=== PATIENT | female | born 1995 | race Caucasian/White ===

== ENCOUNTER 2020-08-14 12:16 | Emergency (ER) | payer SELFPAY ==
[~2020-08-14] VITALS: Ht 177.8 cm; Wt 113.4 kg
--- NOTE | 2020-08-14 12:47 | ED General ---
General Chief Complaint: General Problems/Pain Stated Complaint: BILAT HAND AND FEET SWELLING/PAIN Nursing Triage Note: PT ARRIVED BY PRIVATE VEHICLE WITH CHIEF COMPLAINT OF BILATERAL LOWER AND UPPER EXTREMITIES (HANDS AND FEET). PT WAS ALERT, ORIENTED X 4 AND AMBULATORY. PT STATED THAT SHE STARTED TO HAVE BILATERAL FEET AND HAND SWELLING. HER LEFT FOOT IS NORMALLY SMALLER WITH FOOT DROP, BUT BOTH FEET LOOK LARGE. ALSO, PT SHOWED HER BELLY BUTTON WITH REDNESS AND FLAKING WAS MIGHT APPEAR TO BE A FUNGAL INFECTION. PT IS ALLERGIC TO TRAMADOL WHICH CAUSES SEIZURES. PT HAS HISTORY OF FOOT DROP, HEPATITIS C AND HYPERTENSION. PT SMOKES A PACK OF CIGS A DAY, OCCASIONAL DRINKING, AND SMOKES MARIJUANA. PT'S VITAL SIGNS WERE DONE ON ARRIVAL. REPORT WAS GIVEN TO PROVIDER. Nursing Sepsis Screen: No Definite Risk Source of Information: Patient Exam Limitations: No Limitations History of Present Illness Date Seen by Provider: Aug 14, 2020 Time Seen by Provider: 12:21 Initial Comments This is a well-appearing 25-year-old female who presents to the ER via POV with complaint of bilateral lower extremity and bilateral upper extremity swelling. States that she has been having swelling for the past week as well as tingling in her hands. Also reports some redness around her bellybutton that started yesterday. States that she she drinks a pint of vodka daily. Smokes THC daily and last used methamphetamine 2 days ago. States that she was just released from jail last month and has not had time to establish with a primary care provider. Denies fever, chills, cough, shortness of breath, dysuria, hematuria. Allergies and Home Medications Allergies Coded Allergies: tramadol (Verified Allergy, Unknown, Vomiting, 08/14/20) Has Seizures Home Medications Nystatin 15 Gm Oint...g., 15 GM TP QID Prescribed by: KIRK BERNABE on 08/14/20 1406 Patient Home Medication List Home Medication List Reviewed: Yes Review of Systems Review of Systems Constitutional: see HPI EENTM: no symptoms reported Respiratory: no symptoms reported Cardiovascular: no symptoms reported Gastrointestinal: see HPI Genitourinary: see HPI Musculoskeletal: no symptoms reported Skin: no symptoms reported Psychiatric/Neurological: Emotional Problems, Paresthesia Hematologic/Lymphatic: No Symptoms Reported Immunological/Allergic: see HPI Past [id number]-Dejofd Hx Patient Social History Alcohol Use: Occasionally Uses Smoking Status: Current Everyday Smoker Type Used: Cigarettes 2nd Hand Smoke Exposure: Yes Recent Infectious Disease Expo: No Recent Hopitalizations: No Seasonal Allergies Seasonal Allergies: No Past Medical History Surgeries: Yes (spleenectomy, knee/ribs/pelvic surgery) Respiratory: No Cardiac: Yes Hypertension Neurological: No Sexually Transmitted Disease: No (Hepatitis C) HIV/AIDS: No (Hepatitis C) Genitourinary: No Gastrointestinal: No Musculoskeletal: Yes Foot Drop Endocrine: No HEENT: No Cancer: No Psychosocial: No Blood Disorders: Yes (Hepatitis C) Physical Exam Vital Signs Vital Signs - First Documented 08/14/20 12:23 Temp 36.4 Pulse 67 Resp 18 B/P (MAP) 134/80 (98) Pulse Ox 100 O2 Delivery Room Air Capillary Refill : Less Than 3 Seconds Height, Weight, BMI Height: '" Weight: lbs. oz. kg; 35.00 BMI Method: General Appearance: No Apparent Distress, WD/WN Eyes: Bilateral Eye Normal Inspection, Bilateral Eye PERRL, Bilateral Eye EOMI HEENT: PERRL/EOMI, Normal ENT Inspection Neck: Full Range of Motion, Normal Inspection, Non Tender Respiratory: Lungs Clear, Normal Breath Sounds, No Accessory Muscle Use Cardiovascular: Regular Rate, Rhythm, Normal Peripheral Pulses Gastrointestinal: Normal Bowel Sounds, Soft, Tenderness (generalized) Extremity: Normal Capillary Refill, Normal Inspection, Pedal Edema (BLE 1+) Neurologic/Psychiatric: Alert, Oriented x3, No Motor/Sensory Deficits, Normal Mood/Affect Skin: Normal Color, Warm/Dry Progress/Results/Core Measures Suspected Sepsis Recent Fever Within 48 Hours: No Infection Criteria Present: None New/Unexplained Altered Menta: No Sepsis Screen: No Definite Risk SIRS Temperature: Pulse: 67 Respiratory Rate: 18 Laboratory Tests 08/14/20 12:50: White Blood Count 8.5 Blood Pressure 134 /80 Mean: 98 Laboratory Tests 08/14/20 12:50: Creatinine 0.73, Platelet Count 442H, Total Bilirubin 0.4 Results/Orders Lab Results Laboratory Tests Test 08/14/20 12:35 08/14/20 12:42 08/14/20 12:50 Range/Units Urine Color YELLOW Urine Clarity SL CLOUDY Urine pH 6.0 5-9 Urine Specific [place] >=1.030 1.016-1.022 Urine Protein TRACE H NEGATIVE Urine Glucose (UA) NEGATIVE NEGATIVE Urine Ketones NEGATIVE NEGATIVE Urine Nitrite NEGATIVE NEGATIVE Urine Bilirubin NEGATIVE NEGATIVE Urine Urobilinogen 0.2 < = 1.0 MG/DL Urine Leukocyte Esterase NEGATIVE NEGATIVE Urine RBC (Auto) NEGATIVE NEGATIVE Urine RBC RARE /HPF Urine WBC RARE /HPF Urine Squamous Epithelial Cells RARE /HPF Urine Crystals NONE /LPF Urine Bacteria FEW H /HPF Urine Casts NONE /LPF Urine Mucus NEGATIVE /LPF Urine Culture Indicated NO Urine Test NEGATIVE NEGATIVE Urine Opiates Screen POSITIVE H NEGATIVE Urine Oxycodone Screen NEGATIVE NEGATIVE Urine Methadone Screen NEGATIVE NEGATIVE Urine Propoxyphene Screen NEGATIVE NEGATIVE Urine Barbiturates Screen NEGATIVE NEGATIVE Ur Tricyclic Antidepressants Screen NEGATIVE NEGATIVE Urine Phencyclidine Screen NEGATIVE NEGATIVE Urine Amphetamines Screen POSITIVE H NEGATIVE Urine Methamphetamines Screen POSITIVE H NEGATIVE Urine Benzodiazepines Screen NEGATIVE NEGATIVE Urine Cocaine Screen NEGATIVE NEGATIVE Urine Cannabinoids Screen POSITIVE H NEGATIVE White Blood Count 8.5 4.3-11.0 10^3/uL Red Blood Count 4.76 3.80-5.11 10^6/uL Hemoglobin 14.0 11.5-16.0 g/dL Hematocrit 44 35-52 % Mean Corpuscular Volume 92 80-99 fL Mean Corpuscular Hemoglobin 29 25-34 pg Mean Corpuscular Hemoglobin Concent 32 32-36 g/dL Red Cell Distribution Width 13.1 10.0-14.5 % Platelet Count 442 H 130-400 10^3/uL Mean Platelet Volume 9.7 9.0-12.2 fL Immature Granulocyte % (Auto) 1 % Neutrophils (%) (Auto) 56 42-75 % Lymphocytes (%) (Auto) 30 12-44 % Monocytes (%) (Auto) 10 0-12 % Eosinophils (%) (Auto) 3 0-10 % Basophils (%) (Auto) 1 0-10 % Neutrophils # (Auto) 4.8 1.8-7.8 10^3/uL Lymphocytes # (Auto) 2.5 1.0-4.0 10^3/uL Monocytes # (Auto) 0.8 0.0-1.0 10^3/uL Eosinophils # (Auto) 0.3 0.0-0.3 10^3/uL Basophils # (Auto) 0.1 0.0-0.1 10^3/uL Immature Granulocyte # (Auto) 0.0 0.0-0.1 10^3/uL Sodium Level 140 135-145 MMOL/L Potassium Level 3.8 3.6-5.0 MMOL/L Chloride Level 104 98-107 MMOL/L Carbon Dioxide Level 28 21-32 MMOL/L Anion Gap 8 5-14 MMOL/L Blood Urea Nitrogen 14 7-18 MG/DL Creatinine 0.73 0.60-1.30 MG/DL Estimat Glomerular Filtration Rate > 60 BUN/Creatinine Ratio 19 Glucose Level 101 70-105 MG/DL Calcium Level 9.3 8.5-10.1 MG/DL Corrected Calcium 9.3 8.5-10.1 MG/DL Total Bilirubin 0.4 0.1-1.0 MG/DL Aspartate Amino Transf (AST/SGOT) 40 H 5-34 U/L Alanine Aminotransferase (ALT/SGPT) 30 0-55 U/L Alkaline Phosphatase 84 40-136 U/L Total Protein 7.5 6.4-8.2 GM/DL Albumin 4.0 3.2-4.5 GM/DL Serum Alcohol < 10 <10 MG/DL My Orders Orders - KIRK BERNABE APRN Urinalysis (08/14/20 12:21) Urine Bedside (08/14/20 12:21) Cbc With Automated Diff (08/14/20 12:48) Comprehensive Metabolic Panel (08/14/20 12:48) Hcg,Qualitative Urine (08/14/20 12:48) Drug Screen Stat (Urine) (08/14/20 12:48) Alcohol (08/14/20 12:48) Ondansetron Injection (Zofran Injectio (08/14/20 13:30) Ketorolac Injection (Toradol Injection) (08/14/20 13:30) Medications Given in ED Current Medications Medications Dose Ordered Sig/Ephraim Route Start Time Stop Time Status Last Admin Dose Admin Ketorolac Tromethamine 15 mg ONCE ONCE IVP 08/14/20 13:30 08/14/20 13:31 DC 08/14/20 13:42 15 MG Ondansetron HCl 4 mg ONCE ONCE IVP 08/14/20 13:30 08/14/20 13:31 DC 08/14/20 13:42 4 MG Vital Signs/I&O 08/14/20 08/14/20 12:23 14:11 Temp 36.4 Pulse 67 64 Resp 18 16 B/P (MAP) 134/80 (98) 141/76 Pulse Ox 100 100 O2 Delivery Room Air Room Air Capillary Refill : Less Than 3 Seconds Blood Pressure Mean: 98 Progress Note : Progress Note Patient examined in no acute distress. Patient's report during triage assessment varied greatly while obtaining HPI. She admits to using methamphetamines 2 days ago, however states her symptoms started prior to this. Will order basic labs, check UDS and EtOH. If elevated white count will plan to order CT abdomen pelvis. Labs reviewed and are unremarkable. Given Toradol 50 mg IV push and Zofran for pain and nausea. Reports feeling much improved. Reviewed plan for her to follow-up with a primary care provider as she likely has vitamin B deficiency due to her chronic alcohol use. Also discussed stopping methamphetamine use. While reviewing discharge plan she became upset, stated she just wanted her discharge papers now so she could leave. Departure Impression Primary Impression: Poly-drug misuser Additional Impressions: Alcohol abuse Hand paresthesia Disposition: HOME, SELF-CARE Condition: Improved Departure-Patient Inst. Decision time for Depature: 13:57 Referrals: NO,LOCAL PHYSICIAN (PCP/Family) Primary Care Physician Patient Instructions: LOCAL PHYSICIAN LIST, Drug Abuse and Drug Addiction (DC) Add. Discharge Instructions: Plan: 1. Discharge home. Take a Bcomplex vitamin daily. You can follow up with [facility] to help you with reducing your alcohol consumption. 2. Stop using Methamphetamines. 3. Use Nystatin cream four time a day to belly button. Keep area dry. 4. Establish with primary care provider, you have been provided with a list. 5. Return for any new or concerning symptoms. All discharge instructions reviewed with patient and/or family. Voiced under standing. Scripts Nystatin (Nystatin) 15 Gm Oint...g. 15 GM TP QID for 14 Days, #1 TUBE 0 Refills Prov: KIRK BERNABE LEADER ASSEMBLER 08/14/20 KIRK BERNABE LEADER ASSEMBLER Aug 14, 2020 12:47
[2020-08-14 12:56] LABS: BASOPHILS # (AUTO) 0.1 10^3/uL (0.0-0.1); BASOPHILS % (AUTO) 1 % (0-10); EOSINOPHILS # (AUTO) 0.3 10^3/uL (0.0-0.3); EOSINOPHILS % (AUTO) 3 % (0-10); HEMATOCRIT 44 % (35-52); LYMPHOCYTES # (AUTO) 2.5 10^3/uL (1.0-4.0); LYMPHOCYTES % (AUTO) 30 % (12-44); MEAN CORPUSCULAR HEMOGLOBIN 29 pg (25-34); MEAN CORPUSCULAR HGB CONC 32 g/dL (32-36); MEAN CORPUSCULAR VOLUME 92 fL (80-99); MEAN PLATELET VOLUME 9.7 fL (9.0-12.2); MONOCYTES # (AUTO) 0.8 10^3/uL (0.0-1.0); MONOCYTES % (AUTO) 10 % (0-12); NEUTROPHILS # (AUTO) 4.8 10^3/uL (1.8-7.8); NEUTROPHILS % (AUTO) 56 % (42-75); PLATELET COUNT 442 10^3/uL (130-400); WHITE BLOOD COUNT 8.5 10^3/uL (4.3-11.0)
[2020-08-14 13:06] LABS: HCG,QUALITATIVE URINE NEGATIVE (NEGATIVE)
[2020-08-14 13:10] LABS: AMPHETAMINE SCREEN, URINE POSITIVE (NEGATIVE); BARBITURATE SCREEN URINE NEGATIVE (NEGATIVE); BENZODIAZEPINES SCREEN URINE NEGATIVE (NEGATIVE); CANNABINOID SCREEN, URINE POSITIVE (NEGATIVE); COCAINE SCREEN URINE NEGATIVE (NEGATIVE); METHADONE STAT NEGATIVE (NEGATIVE); METHAMPHETAMINE SCREEN URINE S POSITIVE (NEGATIVE); OPIATE SCREEN URINE POSITIVE (NEGATIVE); OXYCODONE STAT NEGATIVE (NEGATIVE); PROPOXYPHENE STAT NEGATIVE (NEGATIVE); TRICYCLIC ANTIDEPRESSANTS SCRE NEGATIVE (NEGATIVE)
[2020-08-14 13:24] LABS: ALANINE AMINOTRANSFERASE 30 U/L (0-55); ALKALINE PHOSPHATASE 84 U/L (40-136); BILIRUBIN,TOTAL 0.4 MG/DL (0.1-1.0); BUN/CREATININE RATIO 19; CALCIUM 9.3 MG/DL (8.5-10.1); CARBON DIOXIDE 28 MMOL/L (21-32); CHLORIDE 104 MMOL/L (98-107); CREATININE SERUM 0.73 MG/DL (0.60-1.30); GFR ESTIMATED > 60; GLUCOSE 101 MG/DL (70-105); POTASSIUM 3.8 MMOL/L (3.6-5.0); SODIUM 140 MMOL/L (135-145); TOTAL PROTEIN 7.5 GM/DL (6.4-8.2)
[2020-08-14] MEDS ORDERED: ONDANSETRON 4 MG/2 ML (SDV) Z0FRAN IVP ONE (13:30)
[2020-08-14] MEDS ORDERED: KETOROLAC 30 MG/ML VIAL IVP ONE (13:30)
[2020-08-14 13:36] LABS: BILIRUBIN,URINE NEGATIVE (NEGATIVE); CLARITY,URINE SL CLOUDY; COLOR,URINE YELLOW; GLUCOSE, URINE (UA) NEGATIVE (NEGATIVE); KETONES,URINE NEGATIVE (NEGATIVE); LEUKOCYTE ESTERASE ,URINE NEGATIVE (NEGATIVE); NITRITE,URINE NEGATIVE (NEGATIVE); PROTEIN,URINE TRACE (NEGATIVE)
[2020-08-14] MEDS ORDERED: NYST15OI13 TP (14:06)
[2020-08-14 14:09] LABS: RBC,URINE RARE /HPF
[2020-08-14 14:10] LABS: BACTERIA,URINE FEW /HPF; SQUAMOUS EPITHELIAL CELL,UR RARE /HPF; WBC,URINE RARE /HPF
[2020-08-14 14:11] VITALS: BP 141/76
== END 2020-08-14 14:11 | disposition home or self-care (01) ==
LOC: ER 12:19
DX: F15.90 Other stimulant use, unspecified, uncomplicated (principal); F10.10 Alcohol abuse, uncomplicated; R20.2 Paresthesia of skin; I10 Essential (primary) hypertension; F17.210 Nicotine dependence, cigarettes, uncomplicated; Z88.5 Allergy status to narcotic agent
CPT/HCPCS: 80053; 80306; 81000; 84703; 85025; 99281; G0480; 36415; 80320